=== PATIENT | male | born 1960 | race Caucasian/White ===

== ENCOUNTER 2024-10-30 01:41 | Emergency (ER) | payer SELFPAY ==
[2024-10-30 01:43] VITALS: BMI 27.8
[2024-10-30 02:19] VITALS: BP 150/103; PULSE 92; RESP 18; TEMP 37; O2SAT 96
--- NOTE | 2024-10-30 02:25 | PC.NURSE ---
AFTER TALKING GTO PROVIDER PT TOOK OFF ER.
--- NOTE | 2024-10-30 02:27 | EDRME_ITS ---
Rapid Medical Screening Exam [facility] Arrival date/time: 10/30/24 01:41 64M with history of BPH and chronic prostatitis (on Cipro and Flomax) presents to ED with difficulty urinating. After patient was told a Johnson cath is the only definitive solution (patient has never tried one) and nothing else could be done for his chronic issue, patient got very upset and stormed out saying this was a waste of time. Chief Complaint: Urogenital-Male Vital signs: Vital Signs Temperature 98.6 F 10/30/24 02:19 Pulse Rate 92 10/30/24 02:19 Respiratory Rate 18 10/30/24 02:19 Blood Pressure 150/103 H 10/30/24 02:19 Pulse Oximetry (%) 96 10/30/24 02:19 Oxygen Delivery Method Room Air 10/30/24 02:19
== END 2024-10-30 02:26 | disposition left against medical advice (07) ==
LOC: SERX 02:51
PROVIDERS: Emergency Provider Physician Assistant
DX: R39.198 Other difficulties with micturition (principal); N41.1 Chronic prostatitis; N40.0 Benign prostatic hyperplasia without lower urinary tract symptoms
CPT/HCPCS: 99282

== ENCOUNTER 2024-10-30 20:24 | Emergency (ER) | payer SELFPAY ==
--- NOTE | 2024-10-30 21:39 | PD.EDMALE ---
ED Male Genitalurinary RME/HPI General Chief complaint: Urogenital-Male Stated complaint: cant urinate Time Seen by Provider: 10/30/24 21:41 Arrival date/time: 10/30/24 20:24 RME / HPI RME / HPI Narrative: 64-year-old male patient with significant history of BPH, currently taking Cipro and Flomax, came in for evaluation regarding acute urinary retention. Patient's been having worsening urinary retention for more than 24 hours, told me that he cannot pee however is only dribbles. Patient is now complaining of discomfort. No vomiting no fever no other complaints noted. Patient came in yesterday however refused Johnson catheter. Related Data Allergies Allergy/AdvReac Type Severity Reaction Status Date / Time No Known Allergies Allergy Verified 10/30/24 01:42 Review of Systems Review of Systems Narrative Review of Systems: Review of system reviewed and within normal limits except mentioned in HPI ED Exam Narrative Physical exam: VITAL SIGNS: Reviewed. GENERAL APPEARANCE: Alert and interactive, follows commands, no acute distress, HEAD AND FACE: Non-traumatic. ENT: PERRL, pink conjunctivitis, eyelid no trauma, Mucous membrane moist. NECK: Supple, nontender, no nuchal rigidity. CHEST: No tenderness, no crepitus, no paradoxical movement, no retractions. LUNGS: Clear, well ventilated, symmetric, no rales, no wheezing, no ronchi, no stridor, good breath sounds bilaterally. HEART: Regular rate, regular rhythm, no murmur, no gallops. ABDOMEN: Soft, positive bowel sounds, nondistended, no guarding, nontender, no rebound, no masses, RECTAL: Deferred. GENITAL: Suprapubic distention with tenderness NEUROLOGICAL: Gross motor function intact sensory function intact, Appropriate for age. MUSCULOSKELETAL: low back nontender, full range of motion. EXTREMITIES: Nontender, full range of motion. SKIN: Color pink, dry, no rash, no lacerations, no abrasions, no contusions. LYMPHATICS: Deferred. Course Quality Measures none Orders Category Date Time Status Johnson to [place] Routine Care 10/30/24 21:39 Ordered Johnson to Leg Bag Routine Care 10/30/24 21:39 Ordered UA, C/S IF [Urinalysis, C/S if Indicated] Stat Lab 10/30/24 21:53 Completed Vital Signs Vital signs: Vital Signs Temperature 98.7 F 10/30/24 21:42 Pulse Rate 89 10/30/24 21:42 Respiratory Rate 20 10/30/24 21:42 Blood Pressure 140/80 H 10/30/24 21:42 Pulse Oximetry (%) 95 10/30/24 21:42 Oxygen Delivery Method Room Air 10/30/24 21:42 Urogenital - Male [facility] Narrative [facility] Narrative:: 64-year-old male patient with significant history of BPH, currently taking Cipro and Flomax, came in for evaluation regarding acute urinary retention. Patient's been having worsening urinary retention for more than 24 hours, told me that he cannot pee however is only dribbles. Patient is now complaining of discomfort. No vomiting no fever no other complaints noted. Patient came in yesterday however refused Johnson catheter. Johnson catheter was inserted and attached to a leg bag, and draining more than 1 L of clear urine. Urinalysis no UTI. Patient was advised to follow-up with PCP or establish with PCP and for referral to urologist. Patient is stable for discharge home Patient data External records reviewed:: None Clinical information provided by:: patient Social determinants that could affect healthcare access:: none Patient has the following chronic illnesses:: None How is presenting disease/condition affected by chronic disease/condition?: no chronic disease Evaluation data The following diagnostics were reviewed and interpreted by me:: lab results Lab and/or radiology exams considered but not ordered:: And Interpretation Summary: See results in mdm Medications / Prescriptions Medications or Prescriptions considered but not ordered:: None Medication administrations:: None Consultations Consultation(s) initiated? (list below): No Diagnosis Urogenital Male Differential Diagnosis: urinary tract infection and acute retention of urine Most likely diagnosis given after review of the tests above:: Acute urinary retention Admission Indicated Admission indicated?: not indicated Admission Request Was there a request for admission?: No Disposition Plan Disposition Plan: Discharge Discharge Attestation Discharge Attestation: The patient was given an opportunity to ask questions and understood the discharge instructions. Discharge instructions specifically effects, indications for sooner follow up or return to the emergency department, and the expected course of current diagnosis. Patient condition: Stable Discharge Plan Plan Patient Disposition: HOME (Self Care) Discharge Disposition comment: stable Problem List Clinical Impression: Acute retention of urine Patient/Caregiver Discharge Instructions Discharge Activity: activity as tolerated Education Materials: ED Urinary Retention, Male Additional Instructions: Thank you for the opportunity for serving you today. You are stable for discharged . You are advised to: Follow-up with your PCP in 1 to 2 days Return to ED for worsening of symptoms Increase oral fluids As your PCP to refer you to a urologist Print Language: Somali Stand Alone Forms: Alcey Award Info., Patient Portal Info Letter PA/ROD Supervising Physician WOO/ROD Supervising Physician: MD Dennys
[2024-10-30 21:42] VITALS: BP 140/80; PULSE 89; RESP 20; TEMP 37.1; O2SAT 95
[2024-10-30 22:10] LABS: Collection Type, Urine Catheter
[2024-10-30 22:32] LABS: Bilirubin,Urine Negative (Negative); Blood,Urine Negative (Negative); Clarity,Urine Clear (Clear/Hazy); Color,Urine Colorless (Lt Yel-Yel); Culture Indicated,Urine Not Indicated; Glucose, Urine 4+ (Negative); Ketones,Urine Negative (Negative); Leukocyte Esterase,Urine Negative (Negative); Nitrite,Urine Negative (Negative); PH,Urine 6.0 (5.0-7.0); Protein,Urine Negative (Neg - Trace); RBC,Urine 1 /hpf (0-3); Specific Gravity,Urine 1.040 (1.001-1.035); Squamous Epithelial Cell,Urine < 1 /hpf (0-5); Urobilinogen,Urine Negative mg/dL (0.0-1.0); WBC,Urine < 1 /hpf (0-5)
== END 2024-10-31 00:10 | disposition home or self-care (01) ==
LOC: SERX 10-31 00:23
PROVIDERS: Nurse Practitioner Family; Emergency Provider Emergency Medicine
DX: N40.1 Benign prostatic hyperplasia with lower urinary tract symptoms (principal); R33.8 Other retention of urine
CPT/HCPCS: 51702; 81001; 99283; A4314

== ENCOUNTER 2024-11-01 16:00 | Emergency (ER) | payer SELFPAY ==
[2024-11-01 16:02] VITALS: BMI 27.8
[2024-11-01 16:18] VITALS: BP 164/98; PULSE 109; RESP 18; TEMP 37.1; O2SAT 97
--- NOTE | 2024-11-01 16:27 | EDNOTE_ITS ---
<Statement entered by Juliette Arredondo MD - 11/02/24 06:23> As co-signing physician, I was present and available for consult prn. I concur with the plan and care as documented by the midlevel provider. ED Male Genitalurinary RME/HPI General Chief complaint: Urogenital-Male Stated complaint: Unable to Urinate Time Seen by Provider: 11/01/24 16:19 Source: patient, RN notes reviewed and old records reviewed Arrival date/time: 11/01/24 16:00 Mode of arrival: ambulatory Limitations: no limitations RME / HPI RME / HPI Narrative: 64yom presents to ED for urinary retention. Hx of BPH, patient states he does not have a urologist at this time. Patient had Ramos placed in ED 2 days ago. Patient self removed ramos at home today 2/2 penile pain. No fever, nausea/vomiting, abdominal pain, flank pain, dysuria or hematuria reported. Ibuprofen taken at 1430 today with mild relief. Related Data Allergies Allergy/AdvReac Type Severity Reaction Status Date / Time No Known Allergies Allergy Verified 11/01/24 16:05 Review of Systems Review of Systems Systems Reviewed: All systems reviewed, normal except as documented Constitutional Constitutional: Denies chills and Denies fever(s) Gastrointestinal Gastrointestinal: Denies abdominal pain, Denies nausea and Denies vomiting Genitourinary Genitourinary: Denies dysuria, Denies flank pain, Reports genital pain and Denies hematuria Past Medical History Past Medical History GENITOURINARY: Positive Benign Prostatic Hyperplasia Surgical History OTHER SURGICAL HX: L shoulder, R wrist, L hand Social History SMOKING STATUS: Never smoker SUBSTANCE USE: does not use ALCOHOL: Never ED Exam General Limitations: Present no limitations General appearance: Present alert and in no apparent distress Head Head exam: Present atraumatic and normocephalic Eye Eye exam: Present normal appearance, PERRL and EOMI ENT ENT exam: Present normal exam and mucous membranes moist Neck Neck exam: Present normal inspection and full ROM Chest Chest inspection: Present normal inspection and symmetric chest wall rise Respiratory Respiratory exam: Present normal lung sounds bilaterally; Absent respiratory distress Cardiovascular Cardiovascular exam: Present regular rate and normal rhythm Abdominal Exam Abdominal exam: Present soft; Absent distention, tenderness, guarding or rebound Extremities Exam Extremities exam: Present normal inspection and full ROM Neurological Exam Neurological exam: Present alert and oriented X3 Psychiatric Psychiatric exam: Present normal affect and normal mood Skin Skin exam: Present warm, dry, intact and normal color Course Quality Measures none Orders Category Date Time Status Ramos [Urinary Catheter] QS Care 11/01/24 16:31 Completed Lidocaine Jelly 2% Urojet [Xylocaine Jelly 2% Urojet] Med 11/01/24 16:31 Discontinued See Dose Instructions TOP X1 ONE Vital Signs Vital signs: Vital Signs Temperature 98.8 F 11/01/24 16:18 Pulse Rate 109 H 11/01/24 16:18 Respiratory Rate 18 11/01/24 16:18 Blood Pressure 164/98 H 11/01/24 16:18 Pulse Oximetry (%) 97 11/01/24 16:18 Oxygen Delivery Method Room Air 11/01/24 16:18 Urogenital - Male MDM Narrative MDM Narrative:: 64yom presents to ED for urinary retention. Hx of BPH, patient states he does not have a urologist at this time. Patient had Ramos placed in ED 2 days ago. Patient self removed ramos at home today 2/2 penile pain. No fever, nausea/vomiting, abdominal pain, flank pain, dysuria or hematuria reported. Ibuprofen taken at 1430 today with mild relief. Ramos changed to smaller 14 Romansh cath. Strongly encouraged close follow-up with urology. Stable for discharge, RTED precautions given. Patient data External records reviewed:: [facility] previous records (10/30/24 ED visit for urinary retention) Clinical information provided by:: patient Social determinants that could affect healthcare access:: other (specify) (poor access to healthcare) Patient has the following chronic illnesses:: BPH How is presenting disease/condition affected by chronic disease/condition?: caused by Evaluation data The following diagnostics were reviewed and interpreted by me:: other (specify) (none) Lab and/or radiology exams considered but not ordered:: UA: reviewing UA from 2 days ago, no UTI Interpretation Summary: na Medications / Prescriptions Medications or Prescriptions considered but not ordered:: no antibiotics recommended at this time Medication administrations:: Medication Administration History Discontinued Medications Lidocaine HCl (Lidocaine Jelly 2% (Urojet) 10 Ml Tube) 0 ml TOP X1 ONE Stop: 11/01/24 16:32 Last Admin: 11/01/24 17:19 Dose: 10 ml Documented By: CLOVIS above medication administered in ED Consultations Consultation(s) initiated? (list below): No Diagnosis Urogenital Male Differential Diagnosis: urinary tract infection, urethritis, prostatitis and acute retention of urine Most likely diagnosis given after review of the tests above:: urinary retention, BPH Admission Indicated Admission indicated?: not indicated Admission Request Was there a request for admission?: No Disposition Plan Disposition Plan: Discharge Discharge Attestation Discharge Attestation: The patient and all family members were given an opportunity to ask questions and understood the discharge instructions. Discharge instructions specifically effects, indications for sooner follow up or return to the emergency department, and the expected course of current diagnosis. Patient condition: Stable Discharge Plan Plan Patient Disposition: HOME (Self Care) Patient condition on transfer: Stable Prescriptions/Referrals Referrals: Vishal Camargo MD [Physician] - (Call to schedule an appointment for a visit) Thanh Reaves MD [Physician] - (Call to schedule an appointment for visit) Problem List Clinical Impression: Acute retention of urine, BPH (benign prostatic hyperplasia) Patient/Caregiver Discharge Instructions Education Materials: ED Urinary Retention, Male Print Language: Azerbaijani Stand Alone Forms: Lacey Award Info., Patient Portal Info Letter PA/ROD Supervising Physician WOO/ROD Supervising Physician: Maria Elena
[2024-11-01] MEDS: LIDOCAINE JELLY 2% (Urojet) 10 ML TUBE TOP (17:19)
--- NOTE | 2024-11-01 17:50 | PC.NURSE ---
550ml's DRAINED AFTER MUNROE INSERTION. PT DENIES PAIN AT THIS TIME.
== END 2024-11-01 18:19 | disposition home or self-care (01) ==
PROVIDERS: Emergency Provider Emergency Medicine
DX: N40.1 Benign prostatic hyperplasia with lower urinary tract symptoms (principal); R33.8 Other retention of urine; Z46.6 Encounter for fitting and adjustment of urinary device
CPT/HCPCS: 51702; 99283; A4314

== ENCOUNTER 2024-11-06 08:52 | Emergency (ER) | payer SELFPAY ==
[2024-11-06 08:53] VITALS: BMI 27.8
--- NOTE | 2024-11-06 09:07 | PD.EDMALE ---
ED Male Genitalurinary RME/HPI General Chief complaint: Urogenital-Male Stated complaint: WANTS STREAM URINE TEST AND REMOVE MUNROE Time Seen by Provider: 11/06/24 08:58 Arrival date/time: 11/06/24 08:52 Limitations: no limitations RME / HPI RME / HPI Narrative: DR. HAIR CARLOS ED EVALUATION: 64-year-old male with past medical history of hypertension and benign prostatic hyperplasia, currently on tamsulosin, presents to the Emergency Department requesting a catheter check and possible removal. He reports that a urinary catheter was placed last week after an episode of urinary retention. He states he has a follow-up urology appointment but it will be 3-6 months away and prefers not to wait. He denies nausea, vomiting, flank pain, chest pain, or shortness of breath. No known allergies. Related Data Previous Rx's ?Medication ?Instructions ?Recorded cephalexin 500 mg capsule 500 mg PO QID #28 caps 11/06/24 Allergies Allergy/AdvReac Type Severity Reaction Status Date / Time No Known Allergies Allergy Verified 11/06/24 08:55 Review of Systems Review of Systems Systems Reviewed: All systems reviewed, normal except as documented Past Medical History Past Medical History CARDIAC: Positive Hypertension GENITOURINARY: Positive Benign Prostatic Hyperplasia Social History SMOKING STATUS: Never smoker SUBSTANCE USE: does not use ED Exam General Limitations: Present no limitations General appearance: Present alert and in no apparent distress Head Head exam: Present atraumatic, normocephalic and normal inspection Eye Eye exam: Present normal appearance, PERRL and EOMI ENT ENT exam: Present normal exam, normal oropharynx and mucous membranes moist Neck Neck exam: Present normal inspection, full ROM and trachea midline Chest Chest inspection: Present normal inspection and symmetric chest wall rise Respiratory Respiratory exam: Present normal lung sounds bilaterally Cardiovascular Cardiovascular exam: Present regular rate, normal rhythm and normal heart sounds Abdominal Exam Abdominal exam: Present soft and normal bowel sounds Extremities Exam Extremities exam: Present normal inspection and full ROM Back Exam Back exam: Present normal inspection and full ROM Neurological Exam Neurological exam: Present alert, oriented X3 and CN II-XII intact Psychiatric Psychiatric exam: Present normal affect and normal mood Skin Skin exam: Present warm, dry, intact and normal color Course Quality Measures none Orders Category Date Time Status Miscellaneous Nursing Order NOW Care 11/06/24 09:17 Active UA, C/S IF [Urinalysis, C/S if Indicated] Stat Lab 11/06/24 09:36 Completed Urine Culture Stat Lab 11/06/24 09:36 Received [id number] [Rocephin] 1,000 mg Med 11/06/24 10:47 Discontinued Lidocaine 1% 20 ml [Xylocaine 1% 20 ML] 2.1 ml IM X1 Vital Signs Vital signs: Vital Signs Temperature 98.1 F 11/06/24 09:10 Pulse Rate 116 H 11/06/24 09:10 Respiratory Rate 18 11/06/24 09:10 Blood Pressure 179/118 H 11/06/24 09:10 Pulse Oximetry (%) 95 11/06/24 09:10 Oxygen Delivery Method Room Air 11/06/24 09:10 Urogenital - Male MDM Narrative MDM Narrative:: I, Shanelle Mccann, am scribing for and in the presence of Dr. Sykes. Patient is a 64-year-old male with medical history notable for hypertension, BPH, recurrent episodes of proctitis up to the emergency department requesting a Munroe catheter to be removed. Patient denies any fevers chills nausea vomiting chest pain abdominal pain dysuria diarrhea. States he is feeling better after having had the Munroe catheter placed however is requesting that it be removed given that he works as a traveling nurse and wants to see if he is able to void spontaneously. Patient is also concerned because he is not able to see a urologist for about 6 months and does not want to have a Munroe catheter in place if he is able to void spontaneously. X-ray with patient and my recommendation is that we keep the Munroe catheter in place given that he has not seen a urologist yet however patient is requesting that it be removed. Advised patient that if he is not able to void spontaneously after removal of Munroe catheter that he has to return to the emergency department immediately for reassessment and possible replacement of a Munroe catheter. Also ordered urinalysis. Patient declined any medication for symptom relief at this time. Urinalysis with protein glucose ketones and blood 9 white blood cells 1+ bacteria patient also with budding yeast. Will provide patient with a course of antibiotics and a dose of antibiotics here, and send the urine for culture. Patient will be discharged he is hemodynamically stable, not in distress. Patient provided extensive return precautions including pain in his abdomen his flanks fever difficulty voiding or any other symptom of concern. Patient advised highly to follow-up with his primary care doctor as well as a urologist. Patient data External records reviewed:: [facility] previous records Clinical information provided by:: patient Social determinants that could affect healthcare access:: none Patient has the following chronic illnesses:: hypertension and benign prostatic hyperplasia, currently on tamsulosin How is presenting disease/condition affected by chronic disease/condition?: exacerbated by Evaluation data The following diagnostics were reviewed and interpreted by me:: lab results Lab and/or radiology exams considered but not ordered:: none Interpretation Summary: Patient with urinary tract infection Medications / Prescriptions Medications or Prescriptions considered but not ordered:: none Medication administrations:: Medication Administration History Discontinued Medications Ceftriaxone Sodium 1,000 mg/ (Lidocaine HCl 2.1 ml) 0 mg IM X1 ONE Stop: 11/06/24 10:48 see above if any Consultations Consultation(s) initiated? (list below): No Diagnosis Urogenital Male Differential Diagnosis: urinary tract infection, acute retention of urine and other (Urinary retention due to benign prostatic hyperplasia, catheter-associated urinary tract infection, and bladder outlet obstruction.) Most likely diagnosis given after review of the tests above:: Urinary tract infection Admission Indicated Admission indicated?: not indicated Admission Request Was there a request for admission?: No Disposition Plan Disposition Plan: Discharge Discharge Attestation Discharge Attestation: The patient and all family members were given an opportunity to ask questions and understood the discharge instructions. Discharge instructions specifically effects, indications for sooner follow up or return to the emergency department, and the expected course of current diagnosis. Patient condition: Stable Discharge Plan Plan Patient Disposition: HOME (Self Care) Prescriptions/Referrals Prescriptions/Med Rec: New cephalexin 500 mg capsule 500 mg PO QID Qty: 28 0RF Referrals: No Primary/Family,Physician [Primary Care Provider] - In 1 week Problem List Clinical Impression: Acute retention of urine, Urinary tract infection Patient/Caregiver Discharge Instructions Education Materials: ED Hematuria, ED Bladder Infection, Male (Adult) Additional Instructions: Is very important that you return to the emergency room immediately if you develop fever, chills, flank pain, abdominal pain or difficulties urinating or any other symptom of concern. We removed your Munroe catheter at your request today however if you are having any difficulty urinating it is important that you return to the emergency department immediately. Print Language: Armenian Stand Alone Forms: Lacey Award Info., Patient Portal Info Letter
[2024-11-06 09:10] VITALS: BP 179/118; PULSE 116; RESP 18; TEMP 36.7; O2SAT 95
[2024-11-06 09:40] LABS: Collection Type, Urine Clean Catch
[2024-11-06 10:06] LABS: Bacteria,Urine 1+; Bilirubin,Urine Negative (Negative); Blood,Urine 3+ (Negative); Budding Yeast,Urine Present; Clarity,Urine Clear (Clear/Hazy); Color,Urine Lt-Yellow (Lt Yel-Yel); Glucose, Urine 4+ (Negative); Ketones,Urine 1+ (Negative); Leukocyte Esterase,Urine Negative (Negative); Nitrite,Urine Negative (Negative); PH,Urine 6.0 (5.0-7.0); Protein,Urine 1+ (Neg - Trace); RBC,Urine 76 /hpf (0-3); Specific Gravity,Urine 1.026 (1.001-1.035); Squamous Epithelial Cell,Urine < 1 /hpf (0-5); Urobilinogen,Urine Negative mg/dL (0.0-1.0); WBC,Urine 9 /hpf (0-5)
[2024-11-06 10:25] LABS: Culture Indicated,Urine Yes
[2024-11-06] MEDS: cefTRIAXone 1,000 MG, LIDOCAINE 1% 20 ML 2.1 ML IM (11:16)
--- NOTE | 2024-11-06 12:00 | PC.NURSE ---
BLADDER SCANNER USED ON PATIENT. AN AVG. OF 204ML OF URINE REMAINED IN BLADDER AFTER VOIDING.
[2024-11-06] MEDS: LIDOCAINE JELLY 2% (Urojet) 10 ML TUBE TOP (12:34)
[2024-11-06 13:26] VITALS: BP 178/82; PULSE 87; RESP 18; TEMP 36.6; O2SAT 100
== END 2024-11-06 13:26 | disposition home or self-care (01) ==
PROVIDERS: Emergency Provider Emergency Medicine
DX: N39.0 Urinary tract infection, site not specified (principal); Z46.6 Encounter for fitting and adjustment of urinary device; N40.1 Benign prostatic hyperplasia with lower urinary tract symptoms; R33.8 Other retention of urine; I10 Essential (primary) hypertension
CPT/HCPCS: 51702; 81001; 87077; 87086; 87186; 99283; A4314; J0696; J3490

== ENCOUNTER 2024-12-06 02:35 | Emergency (ER) | payer MEDICAID, SELFPAY ==
[2024-12-06 02:36] VITALS: BMI 27.8
[2024-12-06 02:40] VITALS: BP 174/101; PULSE 107; RESP 19; TEMP 36.3; O2SAT 97
--- NOTE | 2024-12-06 02:53 | PD.EDMALE ---
ED Male Genitalurinary RME/HPI General Chief complaint: General Adult/Misc Complain Stated complaint: THINKS HIS JOHNSON CATH IS INFECTED Time Seen by Provider: 12/06/24 02:48 Arrival date/time: 12/06/24 02:35 RME / HPI RME / HPI Narrative: See [facility] for Dr. Silva's HPI documentation. Related Data Previous Rx's ?Medication ?Instructions ?Recorded cephalexin 500 mg capsule 500 mg PO QID #28 caps 11/06/24 cefdinir 300 mg capsule 300 mg PO BID #14 caps 12/06/24 fluconazole 200 mg tablet 200 mg PO QDAY 7 days #7 tabs 12/06/24 Allergies Allergy/AdvReac Type Severity Reaction Status Date / Time No Known Allergies Allergy Verified 12/06/24 02:36 Review of Systems Review of Systems Systems Reviewed: All systems reviewed, normal except as documented Past Medical History Past Medical History CARDIAC: Positive Hypertension GENITOURINARY: Positive Benign Prostatic Hyperplasia Social History SMOKING STATUS: Never smoker SUBSTANCE USE: does not use ED Exam Narrative Physical exam: See [facility] for Dr. Silva's physical exam documentation. Course Quality Measures none Orders Category Date Time Status Johnson [Urinary Catheter] QS Care 12/06/24 03:25 Completed Johnson to [place] Routine Care 12/06/24 03:03 Ordered Saline [Insert IV] NOW Care 12/06/24 02:58 Completed Bilirubin,Direct Stat Lab 12/06/24 03:18 Completed CBC Stat Lab 12/06/24 03:18 Completed CMP [Comprehensive Metabolic Panel] Stat Lab 12/06/24 03:18 Completed CRP [C-Reactive Protein] Stat Lab 12/06/24 03:18 Completed ESR [Sed Rate (ESR)] Stat Lab 12/06/24 03:18 Completed Lactate (Lactic Acid) Stat Lab 12/06/24 03:18 Completed Magnesium Stat Lab 12/06/24 03:18 Completed Procalcitonin Stat Lab 12/06/24 03:18 Completed UA, C/S IF [Urinalysis, C/S if Indicated] Stat Lab 12/06/24 03:18 Completed Urine Culture Stat Lab 12/06/24 03:18 Received Fluconazole/Ns 400 mg Ivpb [Diflucan/Ns Ivpb] Med 12/06/24 03:00 Discontinued 400 mg in 200 ml IV X1 MethylPREDNISolone.* [SoluMEDROL Inj] Med 12/06/24 02:59 Discontinued 125 mg IVP X1 ONE Sodium Chloride 0.9% 1000 ml [Ns] 1,000 ml Med 12/06/24 02:59 Discontinued IV 999 mls/hr cefTRIAXone/D5w 1gm IV premix [Rocephin/D5w 1gm IV Med 12/06/24 03:54 Discontinued premix] 1 gm in 50 ml IV X1 Vital Signs Vital signs: Vital Signs Temperature 97.4 F 12/06/24 02:40 Pulse Rate 107 H 12/06/24 02:40 Respiratory Rate 19 12/06/24 02:40 Blood Pressure 174/101 H 12/06/24 02:40 Pulse Oximetry (%) 97 12/06/24 02:40 Oxygen Delivery Method Room Air 12/06/24 02:40 Urogenital - Male MDM Narrative MDM Narrative:: This section includes all my notes and documentations, including HPI, PE, and ED course. Yaakov Silva MD HPI: 64yo male here with several days of worsening pain and itching in the lower abdominal area and genital area. Has indwelling Johnson catheter for a month. No fever or chills. No nausea or vomiting. No obvious hematuria. No other complaints. ROS: All negative except as documented in HPI. Physical Exam: General: Alert and oriented. No acute distress when remaining still. High BP noted. Eyes: Conjunctivae and lids clear. ENT: No nasal congestion. Neck: Supple. Heart: RRR. Lungs: No respiratory distress. Good air movement. No rhonchi, wheezing, rales. Abdomen: Soft and nontender. Normal bowel sounds. No distension. No rebound or guarding. Back: No CVA tenderness. Skin: Warm and dry. Neuro: Alert and oriented X 3. I reviewed all diagnostic test results. Blood tests remarkable for Glu 374. UA remarkable for positive nitrite, positive leukocyte esterase, 101 RBC, 1024 WBC, and yeast. Patient declined some diagnostic tests (including CT scan and blood cultures) and some treatments (including Rocephin and BP treatment and hyperglycemia treatment). 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 Discussed potential risks, including missing serious diagnoses and important treatments and even sudden . Patient understood the risks and is willing to take the risks. We couldn't change his mind. At this point, diagnoses include: Bacterial UTI Yeast UTI Treatment here included: Solumedrol 125 mg IV Diflucan 40 mg IV IV fluid He felt much better. Recommended more outpatient care. Based on my best medical judgment, made decision no further evaluation or treatment indicated at this time. Patient understands and agrees to the discharge instructions customized and printed, see below. Discharge Instructions from Dr. Silva printed for you: 1. Unfortunately, we weren't able to complete full evaluation/treatment. Because you declined, including CT scan and some blood tests and IV Rocephin and treatment for high BP and treatment for high glucose. 2. Based on performed the diagnostic tests, you have bacterial UTI and yeast for UTI. 3. Take cefdinir and Diflucan as prescribed. 4. For good hydration and to flush your kidneys and urinary tract, increase oral fluid and maintain clear urine. If dark or yellow, increase oral fluid. 5. See a private doctor on 12/08/2024 for recheck and further care. Ask to review all test results and official radiology reports, to make sure you receive all necessary follow-ups and monitoring, including final urine culture results from today. Ask for help seeing urologist KRISTY. 6. Seek immediate medical care with worsening or with any concerns. Yaakov Silva MD Patient data External records reviewed:: [facility] previous records Clinical information provided by:: patient Social determinants that could affect healthcare access:: none Patient has the following chronic illnesses:: BPH, HTN How is presenting disease/condition affected by chronic disease/condition?: caused by Evaluation data The following diagnostics were reviewed and interpreted by me:: lab results Lab and/or radiology exams considered but not ordered:: none Interpretation Summary: I reviewed all diagnostic test results. Blood tests remarkable for Glu 374. UA remarkable for positive nitrite, positive leukocyte esterase, 101 RBC, 1024 WBC, and yeast. Patient declined some diagnostic tests (including CT scan and blood cultures) and some treatments (including Rocephin and BP treatment and hyperglycemia treatment). 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 Discussed potential risks, including missing serious diagnoses and important treatments and even sudden . Patient understood the risks and is willing to take the risks. We couldn't change his mind. Medications / Prescriptions Medications or Prescriptions considered but not ordered:: none Medication administrations:: Medication Administration History Discontinued Medications Sodium Chloride (Ns) 1,000 mls @ 999 mls/hr IV .Q1H1M ONE Stop: 12/06/24 03:59 Last Infusion: 12/06/24 04:24 Dose: Infused Documented By: Admin: 12/06/24 03:23 Dose: 999 mls/hr Documented By: MICHELET Fluconazole (Diflucan/Ns Ivpb) 400 mg in 200 mls @ 100 mls/hr IV X1 ONE Stop: 12/06/24 04:59 Last Infusion: 12/06/24 04:21 Dose: Infused Documented By: Admin: 12/06/24 03:24 Dose: 100 mls/hr Documented By: MICHELET Ceftriaxone Sodium/Dextrose (Rocephin/D5w 1gm Iv Premix) 1 gm in 50 mls @ 100 mls/hr IV X1 ONE Stop: 12/06/24 04:23 Last Admin: 12/06/24 04:07 Dose: Not Given Documented By: MICHELET Non-Admin Reason: Patient Refused Methylprednisolone Sodium Succinate (Methylprednisolone Sod Succ 62.5 Mg/Ml 2ml Vial) 125 mg IVP X1 ONE Stop: 12/06/24 03:00 Last Admin: 12/06/24 03:24 Dose: 125 mg Documented By: MICHELET Treatment here included: Solumedrol 125 mg IV Diflucan 40 mg IV IV fluid Consultations Consultation(s) initiated? (list below): No Diagnosis Urogenital Male Differential Diagnosis: urinary tract infection, urethritis, prostatitis, acute retention of urine and other (Pyelonephritis, ureteral stone) Most likely diagnosis given after review of the tests above:: Bacterial UTI, Yeast UTI Admission Indicated Admission indicated?: not indicated Explain why admission is indicated or not indicated:: With no condition needing emergent intervention, there was no indication for admission. Admission Request Was there a request for admission?: No Disposition Plan Disposition Plan: Discharge Discharge Attestation Discharge Attestation: The patient and all family members were given an opportunity to ask questions and understood the discharge instructions. Discharge instructions specifically effects, indications for sooner follow up or return to the emergency department, and the expected course of current diagnosis. Patient condition: Stable Discharge Plan Plan Patient Disposition: HOME (Self Care) Prescriptions/Referrals Prescriptions/Med Rec: New cefdinir 300 mg capsule 300 mg PO BID Qty: 14 0RF fluconazole 200 mg tablet 200 mg PO QDAY 7 Days Qty: 7 0RF No Action cephalexin 500 mg capsule 500 mg PO QID Qty: 28 0RF Referrals: No Primary/Family,Physician [Primary Care Provider] - In 1 week Problem List Clinical Impression: Bacterial UTI, Yeast UTI Patient/Caregiver Discharge Instructions Discharge Activity: activity as tolerated Education Materials: ED Johnson Catheter, Care, ED Bladder Infection, Male (Adult) Additional Instructions: Discharge Instructions from Dr. Silva printed for you: 1. Unfortunately, we weren't able to complete full evaluation/treatment. Because you declined, including CT scan and some blood tests and IV Rocephin and treatment for high BP and treatment for high glucose. 2. Based on performed the diagnostic tests, you have bacterial UTI and yeast for UTI. 3. Take cefdinir and Diflucan as prescribed. 4. For good hydration and to flush your kidneys and urinary tract, increase oral fluid and maintain clear urine. If dark or yellow, increase oral fluid. 5. See a private doctor on 12/08/2024 for recheck and further care. Ask to review all test results and official radiology reports, to make sure you receive all necessary follow-ups and monitoring, including final urine culture results from today. Ask for help seeing urologist KRISTY. 6. Seek immediate medical care with worsening or with any concerns. Print Language: Greek Stand Alone Forms: Lacey Award Info., Patient Portal Info Letter
[2024-12-06] MEDS: SODIUM CHLORIDE 0.9% 1000 ML 1,000 ML 999 ML IV (03:23)
[2024-12-06] MEDS: MethylPREDNISolone SOD SUCC 62.5 MG/ML 2ML VIAL 125 MG IVP (03:24)
[2024-12-06] MEDS: FLUCONAZOLE/NS 400 MG IVPB 400 MG/200 ML BAG 100 MG IV (03:24)
[2024-12-06 03:26] LABS: Collection Type, Urine Clean Catch; Squamous Epithelial Cell,Urine 0 /hpf (0-5)
[2024-12-06 03:27] LABS: Lactate (Lactic Acid) 1.5 mMol/L (0.4-2.0)
--- NOTE | 2024-12-06 03:30 | PC.NURSE ---
Pt. informed of provider's recommendation to obtain a blood culture and CT scan to assist in diagnosis and guide treatment. Patient verbalized understanding of the importance of these tests but declined both, stating: ?I don?t have insurance and I can?t afford a big hospital bill? Pt was counseled on the potential risks of delaying or declining the recommended diagnostics, including possible progression of undiagnosed illness.
[2024-12-06 03:37] LABS: Bilirubin,Urine Negative (Negative); Blood,Urine 2+ (Negative); Budding Yeast,Urine Present; Color,Urine Yellow (Lt Yel-Yel); Glucose, Urine 4+ (Negative); Hyphae Yeast Present; Ketones,Urine Negative (Negative); Leukocyte Esterase,Urine Positive (Negative); Nitrite,Urine Positive (Negative); PH,Urine 6.0 (5.0-7.0); Protein,Urine 1+ (Neg - Trace); RBC,Urine 101 /hpf (0-3); Specific Gravity,Urine 1.036 (1.001-1.035); Urobilinogen,Urine Negative mg/dL (0.0-1.0); WBC,Urine 1024 /hpf (0-5)
[2024-12-06 03:38] LABS: Sed Rate (ESR) 9 mm/hr (0-20)
[2024-12-06 03:39] LABS: Clarity,Urine Turbid (Clear/Hazy); Culture Indicated,Urine Yes
[2024-12-06 03:40] LABS: Basophils # (Auto) 0.0 Thou/mm3 (0.0-0.2); Basophils % (Auto) 0 % (0-2.5); Eosinophils # (Auto) 0.1 Thou/mm3 (0.0-0.5); Eosinophils % (Auto) 2 % (0-10); Hematocrit 44.1 % (41.0-53.0); Hemoglobin 15.3 g/dL (13.5-16.0); Immature Granulocytes Auto 0.01 Thou/mm3 (0.00-0.00); Lymphocytes # (Auto) 2.3 Thou/mm3 (1.0-4.8); Lymphocytes % (Auto) 37 % (10-50); Mean Corpuscular HGB Conc 34.7 g/dl (31.0-37.0); Mean Corpuscular Hemoglobin 28.7 pg (25.0-35.0); Mean Corpuscular Volume 83 fL (80-100); Monocytes # (Auto) 0.5 Thou/mm3 (0.0-0.8); Monocytes % (Auto) 8 % (0-12); Neutrophils # (Auto) 3.2 Thou/mm3 (1.8-7.7); Neutrophils % (Auto) 52 % (37-80); Nucleated Red Blood Cell # 0.00 Thou/mm3 (0.00-0.00); Nucleated Red Blood Cell % 0 /100 WBC (0); Platelet Count 232 Thou/mm3 (140-440); RDW Standard Deviation 36.6 fL (35.1-43.9); Red Blood Count 5.33 Miln/mm3 (4.50-5.90); White Blood Count 6.1 Thou/mm3 (3.8-10.6)
[2024-12-06 03:59] LABS: Alanine Aminotransferase 10 U/L (10-49); Albumin, Serum 4.2 gm/dL (3.4-4.8); Albumin/Globulin Ratio 2.1 (1.2-2.2); Alkaline Phosphatase 104 U/L (46-116); Anion Gap 10 (7-16); Aspartate Amino Transferase 10 U/L (0-34); BUN/Creatinine Ratio 10 Ratio (12-20); Bilirubin,Direct 0.1 mg/dL (0.0-0.3); Bilirubin,Total 0.4 mg/dL (0.3-1.2); Blood Urea Nitrogen 12 mg/dL (9-23); C-Reactive Protein < 0.5 mg/dL (0.0-0.9); Calcium 9.4 mg/dL (8.3-10.6); Calcium (Corrected) 9.4 mg/dL (8.5-10.1); Carbon Dioxide 27.3 mMol/L (20.0-31.0); Chloride 101 mMol/L (98-107); Creatinine (Component) 1.2 mg/dL (0.6-1.3); Estimated Creatinine Clearance 76.3 mL/min (>60); Globulin 2.0 gm/dL (2.3-3.5); Glucose 374 mg/dL (74-106); Magnesium 1.7 mg/dL (1.6-2.6); Osmolality,Calculated 290 (275-295); Potassium 3.7 mMol/L (3.4-5.1); Procalcitonin 0.04 ng/ml (0.0-0.49); Sodium 138 mMol/L (136-145); Total Protein 6.2 gm/dL (5.7-8.2); eGFR > 60 See Note
[2024-12-06 04:21] VITALS: BP 170/111; PULSE 81; RESP 18; O2SAT 97
== END 2024-12-06 04:25 | disposition home or self-care (01) ==
PROVIDERS: Emergency Provider Emergency Medicine
DX: B37.49 Other urogenital candidiasis (principal)
CPT/HCPCS: 51702; 36415; 80053; 81001; 82248; 83605; 83735; 84145; 85025; 85652; 86140; 87040; 87077; 87086; 87186; 96365; 96375; 99284; A4314; J1450; J2919; J7030

== ENCOUNTER 2025-03-12 01:35 | Emergency (ER) | payer MEDICAID, SELFPAY ==
[2025-03-12 01:37] VITALS: BP 155/98; PULSE 108; RESP 18; TEMP 36.6; O2SAT 98; BMI 27.3
--- NOTE | 2025-03-12 02:31 | PC.NURSE ---
PT ARGUING WITH DR HARTLEY, PT DIDN'T WANT LAB WORK JUST WANTED A UROLOGY REFERRAL. PT WALKED OUT OF ER AT THIS TIME.
--- NOTE | 2025-03-12 02:32 | EDNOTE_ITS ---
ED Male Genitalurinary RME/HPI General Chief complaint: General Adult/Misc Complain Stated complaint: NEED RAMOS BAG CHANGE,NEED UROLOGY REFFERAL Time Seen by Provider: 03/12/25 02:27 Arrival date/time: 03/12/25 01:35 RME / HPI RME / HPI Narrative: See [facility] for Dr. Silva's HPI Documentation. Related Data Previous Rx's ?Medication ?Instructions ?Recorded cephalexin 500 mg capsule 500 mg PO QID #28 caps 11/06 cefdinir 300 mg capsule 300 mg PO BID #14 caps 12/06 Allergies Allergy/AdvReac Type Severity Reaction Status Date / Time No Known Allergies Allergy Verified 03/12/25 01:38 Review of Systems Review of Systems Systems Reviewed: All systems reviewed, normal except as documented Past Medical History Past Medical History CARDIAC: Positive Cardiac Disorders and Hypertension GENITOURINARY: Positive Benign Prostatic Hyperplasia ED Exam Narrative Physical exam: See [facility] for Dr. Silva's Physical Exam Documentation. Course Quality Measures none Orders Category Date Time Status Ramos to Leg Bag Routine Care 03/12/25 01:46 Ordered Vital Signs Vital signs: Vital Signs Temperature 97.8 F 03/12/25 01:37 Pulse Rate 108 H 03/12/25 01:37 Respiratory Rate 18 03/12/25 01:37 Blood Pressure 155/98 H 03/12/25 01:37 Pulse Oximetry (%) 98 03/12/25 01:37 Oxygen Delivery Method Room Air 03/12/25 01:37 Urogenital - Male MDM Narrative [facility] Narrative:: This section includes all my notes and documentations, including HPI, PE, and ED course. Yaakov Silva MD HPI: 65 y/o male with Hx of BPH and HTN presents requesting ramos leg bag and referral to urology. No other complaints. ROS: All negative except as documented in HPI. Physical Exam: General: Alert and oriented. In no acute distress. Eyes: Conjunctivae and lids clear. ENT: No nasal congestion. Neck: Supple. Lungs: No respiratory distress. Skin: Warm and dry. Neuro: Alert and oriented X 3. At this point, diagnoses include: Ramos Catheter Problem Treatment here included: New ramos leg bag dispensed Recommended diagnostic tests, including UA. Patient requested leaving without diagnostic tests. Discussed potential risks, including worsening and sudden . Patient understood the risks and is willing to take the risks. We couldn't change his mind. Recommended outpatient followup. Based on my best medical judgment, made decision no further evaluation or treatment indicated at this time. Patient understands and agrees to the discharge instructions customized and printed, see below. Discharge Instructions from Dr. Silva printed for you: 1. As you requested, you are being discharged after replacing your Ramos leg bag. 2. Since you declined all diagnostic tests, none performed. Despite discussing risks, including missing serious conditions, we weren't able to change her mind. 3. Unfortunately, this hospital has no urology coverage for our emergency room. But if you need urgent urology service, we can transfer you to other facility with urology service. 4. See your primary care provider on 03/13/2025 for recheck and further care, including urology referral if needed. 5. Seek immediate medical care with worsening or with any concerns. Yaakov Silva MD Patient data External records reviewed:: [facility] previous records (Reviewed prior ED records from 12/06/24. Patient was seen for Bacterial UTI.) Clinical information provided by:: patient Social determinants that could affect healthcare access:: none Patient has the following chronic illnesses:: BPH, HTN How is presenting disease/condition affected by chronic disease/condition?: exacerbated by Evaluation data The following diagnostics were reviewed and interpreted by me:: other (specify) (Patient declined diagnostic tests. ) Lab and/or radiology exams considered but not ordered:: None Interpretation Summary: None Medications / Prescriptions Medications or Prescriptions considered but not ordered:: None Medication administrations:: None Consultations Consultation(s) initiated? (list below): No Diagnosis Urogenital Male Differential Diagnosis: urinary tract infection, prostatitis and acute retention of urine Most likely diagnosis given after review of the tests above:: Ramos Catheter Problem Admission Indicated Admission indicated?: not indicated Explain why admission is indicated or not indicated:: Recommended diagnostic tests, including UA. Patient requested leaving without diagnostic tests. Discussed potential risks, including worsening and sudden . Patient understood the risks and is willing to take the risks. We couldn't change his mind. Admission Request Was there a request for admission?: No Disposition Plan Disposition Plan: Discharge Discharge Attestation Discharge Attestation: The patient and all family members were given an opportunity to ask questions and understood the discharge instructions. Discharge instructions specifically effects, indications for sooner follow up or return to the emergency department, and the expected course of current diagnosis. Patient condition: Stable Discharge Plan Plan Patient Disposition: HOME (Self Care) Prescriptions/Referrals Prescriptions/Med Rec: No Action cephalexin 500 mg capsule 500 mg PO QID Qty: 28 0RF cefdinir 300 mg capsule 300 mg PO BID Qty: 14 0RF Problem List Clinical Impression: Ramos catheter problem Patient/Caregiver Discharge Instructions Discharge Activity: activity as tolerated Education Materials: ED Ramos Catheter, Care Additional Instructions: Discharge Instructions from Dr. Silva printed for you: 1. As you requested, you are being discharged after replacing your Ramos leg bag. 2. Since you declined all diagnostic tests, none performed. Despite discussing risks, including missing serious conditions, we weren't able to change her mind. 3. [facility], [facility] for our emergency room. But if you need urgent urology service, we can transfer you to other facility with urology service. 4. See your primary care provider on 03/13/2025 for recheck and further care, including urology referral if needed. 5. Seek immediate medical care with worsening or with any concerns. Print Language: Uzbek Stand Alone Forms: Lacey Award Info., Patient Portal Info Letter
== END 2025-03-12 02:30 | disposition home or self-care (01) ==
LOC: SERX 03:30
PROVIDERS: Emergency Provider Emergency Medicine
DX: Z46.6 Encounter for fitting and adjustment of urinary device (principal); N40.0 Benign prostatic hyperplasia without lower urinary tract symptoms
CPT/HCPCS: 81001; 99281